=== PATIENT | female | born 1950 | race Caucasian/White ===

== ENCOUNTER → 2020-08-15 13:49 | Outpatient (BNVA) | payer MEDICARE, OTHER, SELFPAY | PROVIDERS: PCP Internal Medicine; Visit Provider Nurse Practitioner Family | DX: M96.1 Postlaminectomy syndrome, not elsewhere classified (principal); M47.816 Spondylosis without myelopathy or radiculopathy, lumbar region; M54.2 Cervicalgia; Z79.899 Other long term (current) drug therapy | CPT/HCPCS: 99202 ==

== ENCOUNTER 2021-02-08 12:33 | Day surgery (SDC) | payer MEDICARE, OTHER, SELFPAY ==
--- NOTE | 2021-02-07 15:08 | HO.ANESPROP2 ---
HPI - Anesthesia Eval Consult details Narrative: 70yo F for Lumbar Spinal Cord Stimulation Trial Chronic high dose opioids *Mult med allergies* PMFSH Active Problems Active Problems: All Active Problems (Updated 02/01/21 @ 11:38 by Kaley Méndez, RN) Failed back syndrome (Acute) Spondylosis of lumbar region without myelopathy or radiculopathy (Acute) Cervicalgia (Acute) Past Medical History Medical History (Updated 02/01/21 @ 11:38 by Kaley Méndez, RN) Chronic back pain Chronic sinusitis Fibromyalgia GERD (gastroesophageal reflux disease) Hypothyroidism Reactive airway disease Surgical History Surgical History (Updated 02/01/21 @ 11:05 by Kaley Méndez, RN) History of ankle surgery History of arthroscopy of left knee History of bilateral knee replacement History of lumbar surgery History of surgery Hx of bilateral cataract extraction Hx of bilateral hip replacements Hx of cervical spine surgery Social History Social History Patient Tobacco Use Status: Never used Tobacco Meds Allergies Allergy/AdvReac Type Severity Reaction Status Date / Time tetracycline Allergy Severe anaphylaxis Verified 02/01/21 11:04 chlorzoxazone Allergy Intermediate itchy, red Verified 02/01/21 11:04 [From Parafon Forte] face latex Allergy Intermediate itchy, red Verified 02/01/21 11:04 skin pentazocine [From Talwin] Allergy Intermediate itchy, red Verified 02/01/21 11:04 face amoxicillin [From Augmentin] AdvReac Intermediate vomiting Verified 02/01/21 11:04 clavulanic acid AdvReac Intermediate vomiting Verified 02/01/21 11:04 [From Augmentin] sulfamethoxazole AdvReac Intermediate vomiting Verified 02/01/21 11:04 [From Bactrim] trimethoprim [From Bactrim] AdvReac Intermediate vomiting Verified 02/01/21 11:04 iodine AdvReac Mild unk Verified 02/01/21 11:04 Home Medications Medication Instructions Recorded Confirmed Last Taken Type acyclovir 5 % topical ointment TOPICAL DAILY 08/15/20 08/15/20 Unknown History celecoxib 200 mg capsule 200 mg PO BID 08/15/20 02/01/21 Unknown History levothyroxine 25 mcg tablet 25 mcg PO DAILY 08/15/20 02/01/21 02/08/21 History lorazepam 1 mg tablet 1 mg PO TID PRN 08/15/20 02/01/21 Unknown History montelukast 10 mg tablet 10 mg PO DAILY 08/15/20 02/01/21 Unknown History omeprazole 40 mg capsule,delayed 40 mg PO BID 08/15/20 02/01/21 Unknown History release oxycodone 30 mg tablet 30 mg PO TID PRN 08/15/20 02/01/21 Unknown History pregabalin 150 mg capsule 150 mg PO BID 08/15/20 02/01/21 02/08/21 History zolpidem 5 mg tablet 5 mg PO BEDTIME 08/15/20 02/01/21 Unknown History albuterol sulfate 90 mcg/actuation 2 puff INHALATION Q4-6H PRN 02/01/21 02/01/21 Unknown History aerosol inhaler (ProAir HFA) ascorbic acid (vitamin C) 1,000 mg 500 mg PO BID 02/01/21 02/01/21 Unknown History tablet (Vitamin C) calcium 600 mg capsule 600 mg PO BID 02/01/21 02/01/21 Unknown History cholecalciferol (vitamin D3) 50 50 mcg PO DAILY 02/01/21 02/01/21 Unknown History mcg (2,000 unit) capsule (Vitamin D3) fluticasone furoate 100 1 puff PO DAILY 02/01/21 02/01/21 Unknown History mcg-vilanterol 25 mcg/dose inhalation powder (Breo Ellipta) fluticasone propionate 50 2 spray INTRANASAL DAILY 02/01/21 02/01/21 02/08/21 History mcg/actuation nasal spray,suspension grlpqwdnipn-dhwtoneon-jzy C-Mn 500 3 cap PO BID 02/01/21 02/01/21 Unknown History mg-400 mg capsule (Glucosamine Chondroitin Maximum Strength) melatonin 10 mg capsule 10 mg PO BEDTIME 02/01/21 02/01/21 Unknown History multivitamin,ow-ftua-Xo-FA-min 1 tab PO DAILY 02/01/21 02/01/21 Unknown History omega 7-ikf-tys-fish oil 1,000 mg 3 cap PO BID 02/01/21 02/01/21 Unknown History (120 mg-180 mg) capsule (Fish Oil) oxycodone myristate 36 mg capsule 1 cap PO TID 02/01/21 02/01/21 02/08/21 History sprinkle extended release 12hr(DON'T CRUSH) (Xtampza ER) tiotropium bromide 2.5 1 puff INHALATION BID 02/01/21 02/01/21 Unknown History mcg/actuation mist for inhalation (Spiriva Respimat) Exam Exam Date and Time: February 07, 2021 9757 Assessment and Plan Assessment Anesthesia Assessment: Chart Reviewed
--- NOTE | ~2021-02-08 | FL_ITS ---
EXAMINATION: XR FLUOROSCOPY WITH IMAGES CLINICAL INFORMATION: Spinal cord stimulation trial. COMPARISON: None. TECHNIQUE: Fluoroscopy performed by Dr. Gabriel Ambrosio. Fluoroscopy time: 3.2 minutes DAP: 15.4 mGycm2 Images: 2 FINDINGS: The 2 submitted images obtained in the frontal and lateral planes show spinal cord stimulator leads. The 2 leads terminate at the level of the T7-T8 disc. No lead fracture is seen. FL/FL guidance in OR IMPRESSION: Intraoperative fluoroscopic guidance is provided during spinal cord stimulation trial. Please see Operative Report for full procedural details.
[2021-02-08 12:43] VITALS: BMI 22.1
[2021-02-08 12:48] VITALS: BP 112/64; PULSE 88; RESP 17; TEMP 36.4; O2SAT 94
[2021-02-08] MEDS: Lactated Ringers 1,000 ML 100 ML IVCONT (13:09)
--- NOTE | 2021-02-08 14:25 | PC.NURSE ---
pt moved to [facility] report given to gurmeet ballard
--- NOTE | 2021-02-08 15:18 | MHC.SHP ---
Pre-Procedural Eval Section A Date of Service: 02/08/21 The patient is an INPATIENT: No Changes since office visit: Yes Patient answered all questions The History & Physical has been completed within 30 days and I have reviewed it.: No Section B Chief Complaint: Failed Back Syndrome Details of Present Illness: as above Relevant Family History (Specify if Yes): No Relevant Social History: None Present Medications: see Short Stay Collaborative assessment Medical History: No relevant PMH History of Previous Operations: Relevant previous surgery/procedure and date(s) Allergies: Allergies Allergy/AdvReac Type Severity Reaction Status Date / Time tetracycline Allergy Severe anaphylaxis Verified 02/01/21 11:04 chlorzoxazone Allergy Intermediate itchy, red Verified 02/01/21 11:04 [From Parafon Forte] face latex Allergy Intermediate itchy, red Verified 02/01/21 11:04 skin pentazocine [From Talwin] Allergy Intermediate itchy, red Verified 02/01/21 11:04 face amoxicillin [From Augmentin] AdvReac Intermediate vomiting Verified 02/01/21 11:04 clavulanic acid AdvReac Intermediate vomiting Verified 02/01/21 11:04 [From Augmentin] sulfamethoxazole AdvReac Intermediate vomiting Verified 02/01/21 11:04 [From Bactrim] trimethoprim [From Bactrim] AdvReac Intermediate vomiting Verified 02/01/21 11:04 iodine AdvReac Mild unk Verified 02/01/21 11:04 Review of Systems Sugical H&P ROS: Negative: Constitution, Cardiovascular, Respiratory, Neurological, Psychiatric, Hem-Onc, Allergic/Immunologic, Gastrointestinal, Genitourinary, Musculoskeletal, Integumentary, Endocrine and Eyes/Ears/Nose/Throat Exam Surgical H&P Exam: Normal: HEENT, Normal: Heart, Normal: Lungs, Normal: Extremities, Normal: Abdomen, Normal: Skin and Normal: Neurological Plan Diagnosis/Plan: Unchanged I have reviewed the history and physical and performed a pertinent physical examination on my patient. No changes have occurred unless specified.
[2021-02-08 16:40] VITALS: BP 112/65; PULSE 66; RESP 12; TEMP 36.4; O2SAT 94
--- NOTE | 2021-02-08 16:42 | P.BOP_ITS ---
Brief Operative Note Date of Service: 02/08/21 Pre-op diagnosis: post laminectomy syndrome Post-op diagnosis: same Procedure: Trial of [place] [employer] spinal cord stimulator Implants: None permanent Surgeon: Gabriel Ambrosio MD Anesthesia: MAC Was an Precision Lathe Operator used for this Procedure?: No Estimated blood loss (mL): 2 Pathology: none sent Condition: stable Disposition: PACU
[2021-02-08 16:45] VITALS: BP 136/82; PULSE 74; RESP 16; O2SAT 95
--- NOTE | 2021-02-08 16:48 | W.PM.OPN ---
Operative Note Operative Note Date of Service: 02/08/21 Narrative: Darrius is very pleasant 70 years old femalewho came today into the operating room for trial of spinal cord stimulator for the treatment of post laminectomy syndrome and chronic pain syndrome.? Preoperatively patient received 2 g of cefazolin approximately 15 minutes before procedure. After obtaining informed consent patient was brought to the operating room, SHE was positioned prone on operating table, [employer] monitors were applied and patient was deeply sedated.? The patient was taken inside of the operating room where she was positioned prone on operating table.? Time-out was performed delineating correct site, side, the nature of the procedure, patient's allergy, preoperative antibiotic if needed.? All operating room staff was participating in OR time-out procedure. Patient's entire back was prepped with ChloraPrep twice and draped with full body fenestrated drape.? Sterilely draped C-arm was brought over operating field and sqare picture of T11-T12 L1 L2 vertebrae as were demonstrated on the screen.? Attention FIRST? was concentrated on the T12-L1 epidural interspace.? The location of the projection of the right pedicle center of the L2 vertebra was found on the skin using C-arm.? This location was injected with mixture of lidocaine 2% and Marcaine 0.5% 5 cc.? After that 11 blade was used to make a harman on the skin.? 10 cm 14 gauge introducer epidural needle was inserted through the harman and advanced to T12-L1 epidural interspace.? The advancement proven to be very difficult due to spondylosis and very narrow interspace interval at the level T12-L1 on the right. Then 10 cm 14 gauge needle was removed in in stent was taken 14 gauge 6 in needle and it was inserted through the previously applied harman in the skin and advanced to T11-T12 interspace. The advancement of the needle was performed on anterior posterior and lateral views.? Guitar wire and loss of resistance technique were used to locate epidural space.? When guitar wire was spread in the epidural fashion, epidural lead was inserted through the skin and it was advanced to T8 position SLIGHTLY RIGHT OF THE MIDLINE.? After that location of the projection of the LEFT pedicle center of the L1 vertebra was found on the skin using C-arm.? This location was injected with mixture of lidocaine 2% and Marcaine 0.5% 5 cc.? After that 11 blade was used to make a harman on the skin.? 10 cm 14 gauge ?introducer epidural needle was inserted through the harman and advanced to T11-T12 epidural interspace.? The advancement of the needle was performed on anterior posterior and lateral views.? Loss of resistance technique was used to locate epidural space.? When guitar wire was spread in the epidural fashion, epidural lead was inserted through the needle and advanced to the T8 posterior epidural space slightly left to the midline. At this moment patient was awaken and the epidural leads were connected to the testing device.? The patient reported stimulation corresponding to her pain.? After satisfactory position of the leads were established the needles were withdrawn, the stylette wires were removed from the epidural leads.? The anchoring devices were dislodged on the leads and advanced to the level of the skin.? The anchoring devices were sutured with two 0-0 silk sutures to the skin of the patient.? The leads were connected to testing device.? Bacitracin ointment was applied to the entrance point of bilateral needles.? Sterile dressing was applied to the patient's back.? The testing device was also glued to the patient's back.? Upon completion of the procedure the patient was taken to PACU where SHE recovered uneventfully.??
[2021-02-08 17:00] VITALS: BP 125/83; PULSE 76; RESP 18; O2SAT 96
[2021-02-08 17:15] VITALS: BP 157/95; PULSE 74; RESP 16; TEMP 35.9; O2SAT 98
== END 2021-02-08 17:20 ==
LOC: HO.SSS 12:34
PROVIDERS: PCP Internal Medicine; Visit Provider Anesthesiology
PROC: (CPT 63650; principal; 2021-02-08 14:00)
DX: M96.1 Postlaminectomy syndrome, not elsewhere classified (principal); G89.4 Chronic pain syndrome; M47.816 Spondylosis without myelopathy or radiculopathy, lumbar region; M54.2 Cervicalgia; Z98.1 Arthrodesis status
CPT/HCPCS: 63650 ×2; C1778; J2405; J3010

== ENCOUNTER → 2021-02-14 10:50 | Outpatient (BNVA) | payer MEDICARE, OTHER, SELFPAY | PROVIDERS: PCP Internal Medicine; Visit Provider Anesthesiology | DX: M47.816 Spondylosis without myelopathy or radiculopathy, lumbar region (principal); M96.1 Postlaminectomy syndrome, not elsewhere classified; M54.2 Cervicalgia | CPT/HCPCS: 99212 ==

== ENCOUNTER 2021-04-19 07:40 | Day surgery (SDC) | payer MEDICARE, OTHER, SELFPAY ==
[2021-04-12 14:01] VITALS: BMI 23.6
--- NOTE | 2021-04-18 09:13 | P.CONAN_ITS ---
Documented by User: Lissett Yusuf NP 04/18/21 09:17 HPI - Anesthesia Eval Consult details Narrative: 70yo F for Lumbar Spinal Stimulation Implant s/p trial 01/2021 with MAC *Multiple med allergies Chronic high dose opioids PMFSH Active Problems Active Problems: All Active Problems (Updated 04/12/21 @ 14:00 by Kaley Méndez, RN) Failed back syndrome (Acute) Spondylosis of lumbar region without myelopathy or radiculopathy (Acute) Cervicalgia (Acute) Past Medical History Medical History (Updated 04/12/21 @ 14:00 by Kaley Méndez, RN) Chronic back pain Chronic sinusitis COVID-19 vaccine series completed Fibromyalgia GERD (gastroesophageal reflux disease) Hypothyroidism Medical marijuana use Reactive airway disease Spinal cord stimulator status Surgical History Surgical History (Updated 02/01/21 @ 11:05 by Kaley Méndez RN) History of ankle surgery History of arthroscopy of left knee History of bilateral knee replacement History of lumbar surgery History of surgery Hx of bilateral cataract extraction Hx of bilateral hip replacements Hx of cervical spine surgery Social History Social History Are you a primary cna caregiver to a significant other at home: No Do you presently have visiting nurse or other home services: No Patient Tobacco Use Status: Never used Tobacco Second Hand Smoke Exposure: No Use of substances other than those prescribed or required for medical reasons: No Substance Use Type Other:: Medical Marijuana - 1 at bedtime Have you been hit, kicked, punched, or otherwise hurt by someone within the past year? If so, by whom?: No Are you DNR?: No Advance Directives: No Advance Directives Information Provided: No Advance Directives on File: No Recently lost weight without trying: No Eating poorly because of decreased appetite: No Nutrition Risks: No Nutritional Risk Patient : No Meds Allergies Allergy/AdvReac Type Severity Reaction Status Date / Time tetracycline Allergy Severe anaphylaxis Verified 02/14/21 10:59 chlorzoxazone Allergy Intermediate itchy, red Verified 02/14/21 10:59 [From Parafon Forte] face latex Allergy Intermediate itchy, red Verified 02/14/21 10:59 skin pentazocine [From Talwin] Allergy Intermediate itchy, red Verified 02/14/21 10:59 face amoxicillin [From Augmentin] AdvReac Intermediate vomiting Verified 02/14/21 10:59 clavulanic acid AdvReac Intermediate vomiting Verified 02/14/21 10:59 [From Augmentin] sulfamethoxazole AdvReac Intermediate vomiting Verified 02/14/21 10:59 [From Bactrim] trimethoprim [From Bactrim] AdvReac Intermediate vomiting Verified 02/14/21 10:59 iodine AdvReac Mild unk Verified 02/14/21 10:59 Home Medications Medication Instructions Recorded Confirmed Last Taken Type acyclovir 5 % topical ointment TOPICAL DAILY 08/15/20 08/15/20 Unknown History celecoxib 200 mg capsule 200 mg PO BID 08/15/20 04/12/21 Unknown History levothyroxine 25 mcg tablet 25 mcg PO DAILY 08/15/20 04/12/21 04/19/21 History lorazepam 1 mg tablet 1 mg PO TID PRN 08/15/20 04/12/21 Unknown History montelukast 10 mg tablet 10 mg PO DAILY 08/15/20 04/12/21 Unknown History omeprazole 40 mg capsule,delayed 40 mg PO BID 08/15/20 04/12/21 04/19/21 History release oxycodone 30 mg tablet 30 mg PO TID PRN 08/15/20 04/12/21 Unknown History pregabalin 150 mg capsule 150 mg PO BID 08/15/20 04/12/21 04/19/21 History zolpidem 5 mg tablet 5 mg PO BEDTIME 08/15/20 04/12/21 Unknown History albuterol sulfate 90 mcg/actuation 2 puff INHALATION Q4-6H PRN 02/01/21 04/12/21 Unknown History aerosol inhaler (ProAir HFA) ascorbic acid (vitamin C) 1,000 mg 500 mg PO BID 02/01/21 04/12/21 Unknown History tablet (Vitamin C) calcium 600 mg capsule 600 mg PO BID 02/01/21 04/12/21 Unknown History cholecalciferol (vitamin D3) 50 50 mcg PO DAILY 02/01/21 04/12/21 Unknown History mcg (2,000 unit) capsule (Vitamin D3) fluticasone furoate 100 1 puff PO DAILY 02/01/21 04/12/21 04/19/21 History mcg-vilanterol 25 mcg/dose inhalation powder (Breo Ellipta) fluticasone propionate 50 2 spray INTRANASAL DAILY 02/01/21 04/12/2102/08/21 History mcg/actuation nasal spray,suspension douystqjzcu-czdhxeurz-boo C-Mn 500 3 cap PO BID 02/01/21 04/12/21 Unknown History mg-400 mg capsule (Glucosamine Chondroitin Maximum Strength) melatonin 10 mg capsule 10 mg PO BEDTIME 02/01/21 04/12/21 Unknown History multivitamin,eq-wtqq-Fk-FA-min 1 tab PO DAILY 02/01/21 04/12/21 Unknown History omega 8-fqy-zni-fish oil 1,000 mg 3 cap PO BID 02/01/21 04/12/21 Unknown History (120 mg-180 mg) capsule (Fish Oil) oxycodone myristate 36 mg capsule 1 cap PO TID 02/01/21 04/12/21 04/19/21 History sprinkle extended release 12hr(DON'T CRUSH) (Xtampza ER) tiotropium bromide 2.5 1 puff INHALATION BID 02/01/21 04/12/21 04/19/21 History mcg/actuation mist for inhalation (Spiriva Respimat) Exam Exam Date and Time: April 18, 2021 0913 Height,Weight and Vital Signs: Height 5 ft 5 in Weight 64.41 kg Assessment and Plan Assessment Anesthesia Assessment: Chart Reviewed Documented by User: Anibal Miguel MD 04/19/21 08:19 [facility] Past Medical History Medical History (Updated 04/12/21 @ 14:00 by Kaley Méndez, NANETTE) Chronic back pain Chronic sinusitis COVID-19 vaccine series completed Fibromyalgia GERD (gastroesophageal reflux disease) Hypothyroidism Medical marijuana use Reactive airway disease Spinal cord stimulator status Surgical History Surgical History (Updated 02/01/21 @ 11:05 by Kaley Méndez, NANETTE) History of ankle surgery History of arthroscopy of left knee History of bilateral knee replacement History of lumbar surgery History of surgery Hx of bilateral cataract extraction Hx of bilateral hip replacements Hx of cervical spine surgery Social History Social History Are you a primary cna caregiver to a significant other at home: No Do you presently have visiting nurse or other home services: No Patient Tobacco Use Status: Never used Tobacco Second Hand Smoke Exposure: No Use of substances other than those prescribed or required for medical reasons: No Substance Use Type Other:: Medical Marijuana - 1 at bedtime Have you been hit, kicked, punched, or otherwise hurt by someone within the past year? If so, by whom?: No Are you DNR?: No Advance Directives: No Advance Directives Information Provided: No Advance Directives on File: No Recently lost weight without trying: No Eating poorly because of decreased appetite: No Nutrition Risks: No Nutritional Risk Patient : No Meds Allergies Allergy/AdvReac Type Severity Reaction Status Date / Time tetracycline Allergy Severe anaphylaxis Verified 02/14/21 10:59 chlorzoxazone Allergy Intermediate itchy, red Verified 02/14/21 10:59 [From Parafon Forte] face latex Allergy Intermediate itchy, red Verified 02/14/21 10:59 skin pentazocine [From Talwin] Allergy Intermediate itchy, red Verified 02/14/21 10:59 face amoxicillin [From Augmentin] AdvReac Intermediate vomiting Verified 02/14/21 10:59 clavulanic acid AdvReac Intermediate vomiting Verified 02/14/21 10:59 [From Augmentin] sulfamethoxazole AdvReac Intermediate vomiting Verified 02/14/21 10:59 [From Bactrim] trimethoprim [From Bactrim] AdvReac Intermediate vomiting Verified 02/14/21 10:59 iodine AdvReac Mild unk Verified 02/14/21 10:59 Home Medications Medication Instructions Recorded Confirmed Last Taken Type acyclovir 5 % topical ointment TOPICAL DAILY 08/15/20 08/15/20 Unknown History celecoxib 200 mg capsule 200 mg PO BID 08/15/20 04/12/21 Unknown History levothyroxine 25 mcg tablet 25 mcg PO DAILY 08/15/20 04/12/21 04/19/21 History lorazepam 1 mg tablet 1 mg PO TID PRN 08/15/20 04/12/21 Unknown History montelukast 10 mg tablet 10 mg PO DAILY 08/15/20 04/12/21 Unknown History omeprazole 40 mg capsule,delayed 40 mg PO BID 08/15/20 04/12/21 04/19/21 History release oxycodone 30 mg tablet 30 mg PO TID PRN 08/15/20 04/12/21 Unknown History pregabalin 150 mg capsule 150 mg PO BID 08/15/20 04/12/21 04/19/21 History zolpidem 5 mg tablet 5 mg PO BEDTIME 08/15/20 04/12/21 Unknown History albuterol sulfate 90 mcg/actuation 2 puff INHALATION Q4-6H PRN 02/01/21 04/12/21 Unknown History aerosol inhaler (ProAir HFA) ascorbic acid (vitamin C) 1,000 mg 500 mg PO BID 02/01/21 04/12/21 Unknown History tablet (Vitamin C) calcium 600 mg capsule 600 mg PO BID 02/01/21 04/12/21 Unknown History cholecalciferol (vitamin D3) 50 50 mcg PO DAILY 02/01/21 04/12/21 Unknown History mcg (2,000 unit) capsule (Vitamin D3) fluticasone furoate 100 1 puff PO DAILY 02/01/21 04/12/21 04/19/21 History mcg-vilanterol 25 mcg/dose inhalation powder (Breo Ellipta) fluticasone propionate 50 2 spray INTRANASAL DAILY 02/01/21 04/12/21 02/08/21 History mcg/actuation nasal spray,suspension cehzphpfjje-pnznguqmx-tvo C-Mn 500 3 cap PO BID 02/01/21 04/12/21 Unknown History mg-400 mg capsule (Glucosamine Chondroitin Maximum Strength) melatonin 10 mg capsule 10 mg PO BEDTIME 02/01/21 04/12/21 Unknown History multivitamin,kk-jkyw-Lj-FA-min 1 tab PO DAILY 02/01/21 04/12/21 Unknown History omega 6-hvw-vja-fish oil 1,000 mg 3 cap PO BID 02/01/21 04/12/21 Unknown History (120 mg-180 mg) capsule (Fish Oil) oxycodone myristate 36 mg capsule 1 cap PO TID 02/01/21 04/12/21 04/19/21 History sprinkle extended release 12hr(DON'T CRUSH) (Xtampza ER) tiotropium bromide 2.5 1 puff INHALATION BID 02/01/21 04/12/21 04/19/21 History mcg/actuation mist for inhalation (Spiriva Respimat) Exam Airway Mallampati Class: II TM Dist: >3cm Neck ROM: Full
--- NOTE | ~2021-04-19 | FL_ITS ---
EXAMINATION: Intraoperative fluoroscopy CLINICAL INFORMATION: Lumbar spinal implant COMPARISON: Intraoperative fluoroscopy 02/08/2021 TECHNIQUE: Intraoperative fluoroscopy was provided for use by Dr. Ambrosio. A total of 2 images were saved to PACS. A radiologist was not present during imaging. Today's dictation is only for administrative purposes to document intraoperative fluoroscopic usage. TOTAL FLUOROSCOPIC TIME: 3.3 minutes FL/FL guidance in OR FINDINGS~\^^ Intraoperative fluoroscopy provided for use by Dr. Ambrosio. Please see operative note for detailed findings.
[2021-04-19 07:52] VITALS: BP 139/80; PULSE 66; RESP 18; TEMP 36.1; O2SAT 98
[2021-04-19] MEDS: Lactated Ringers 1,000 ML 100 ML IVCONT (08:16)
--- NOTE | 2021-04-19 08:22 | P.HPSUR_ITS ---
Pre-Procedural Eval Section A Date of Service: 04/19/21 The patient is an INPATIENT: No Changes since office visit: Yes Patient answered all questions The History & Physical has been completed within 30 days and I have reviewed it.: No Section B Chief Complaint: Post laminectomy syndrome Details of Present Illness: as above Relevant Family History (Specify if Yes): No Relevant Social History: None Present Medications: see Short Stay Collaborative assessment Medical History: No relevant PMH History of Previous Operations: Relevant previous surgery/procedure and date(s) Allergies: Allergies Allergy/AdvReac Type Severity Reaction Status Date / Time tetracycline Allergy Severe anaphylaxis Verified 02/14/21 10:59 chlorzoxazone Allergy Intermediate itchy, red Verified 02/14/21 10:59 [From Parafon Forte] face latex Allergy Intermediate itchy, red Verified 02/14/21 10:59 skin pentazocine [From Talwin] Allergy Intermediate itchy, red Verified 02/14/21 10:59 face amoxicillin [From Augmentin] AdvReac Intermediate vomiting Verified 02/14/21 10:59 clavulanic acid AdvReac Intermediate vomiting Verified 02/14/21 10:59 [From Augmentin] sulfamethoxazole AdvReac Intermediate vomiting Verified 02/14/21 10:59 [From Bactrim] trimethoprim [From Bactrim] AdvReac Intermediate vomiting Verified 02/14/21 10:59 iodine AdvReac Mild unk Verified 02/14/21 10:59 Review of Systems Sugical H&P ROS: Negative: Constitution, Cardiovascular, Respiratory, Neurological, Psychiatric, Hem-Onc, Allergic/Immunologic, Gastrointestinal, Gen itourinary, Musculoskeletal, Integumentary, Endocrine and Eyes/Ears/Nose/Throat Exam Surgical H&P Exam: Normal: HEENT, Normal: Heart, Normal: Lungs, Normal: Extremities, Normal: Abdomen, Normal: Skin and Normal: Neurological Plan Diagnosis/Plan: Unchanged I have reviewed the history and physical and performed a pertinent physical examination on my patient. No changes have occurred unless specified.
[2021-04-19 11:20] VITALS: BP 145/84; PULSE 87; RESP 12; TEMP 36.6; O2SAT 96
--- NOTE | 2021-04-19 11:26 | PM.OP ---
Brief Operative Note Date of Service: 04/19/21 Pre-op diagnosis: Postlaminectomy syndrome Post-op diagnosis: same Procedure: Implantation of spinal cord stimulator Implants: [place] [employer] alpha battery and 2 epidural leads. Surgeon: Gabriel Ambrosio MD Anesthesia: MAC Was an Employee Relations Representative used for this Procedure?: No Estimated blood loss (mL): 18 Pathology: none sent Condition: stable Disposition: PACU
[2021-04-19 11:35] VITALS: BP 146/87; PULSE 84; RESP 18; O2SAT 97
[2021-04-19 11:49] VITALS: BP 142/74; PULSE 79; RESP 18; TEMP 36.7; O2SAT 96
[2021-04-19 12:05] VITALS: BP 139/78; PULSE 83; RESP 18; O2SAT 97
--- NOTE | 2021-04-19 13:35 | W.PM.OPN ---
Operative Note Operative Note Date of Service: 04/19/21 Narrative: Mark is 70 years old female who came today into the operating room for implantation of spinal cord stimulator for the treatment of pain related to? postlaminectomy syndrome.? She had successful trial of spinal cord stimulation [employer]. ? Preoperatively patient received antibiotic cefasolin? 2g approximately 30 minutes before the procedure. After obtaining informed consent patient was brought to the operating room, she was positioned prone on the OR table, [employer] monitors were applied and patient was sedated. ?? Time-out was performed delineating correct site, side, the nature of the procedure, patient's allergy, preoperative antibiotic.? All operating room staff was participating in OR time-out procedure. Patient's entire back was prepped with DuraPrep twice and draped with full body drape including Ioban film.? Sterilely draped C-arm was brought over operating field and square picture of T12, L1, L2?vertebrae? were demonstrated on the screen.? THE PROJECTION OF?L1- L2??SPINOUS PROCESSES TO THE SKIN WERE INFILTRATED WITH LIDOCAINE 2% MIXED WITH BUPIVACAINE 0.5%.? 7 CM LONG VERTICAL INCISION using a 10 blade scalpel WAS PERFORMED IN STRICT MIDLINE VERTICAL FASHION.? THOROUGH HEMOSTASIS WAS PERFORMED using electrocautery. ?Thorough tissue dissections was performed until prevertebral fascia was freed from overlying tissues.? Attention FIRST? was concentrated on the RIGHT T12-L1 epidural interspace.? The location of the projection of the right pedicle center of the?L2?vertebra was found on the prevertebral fascia using C-arm.? This location was injected with mixture of lidocaine 2% and Marcaine 0.5% 5 cc in approximate direction of needle advancement.? After that ? 10 cm 14 gauge straight introducer epidural needle was inserted through the fascia and advanced toward?T12-L1 epidural interspace.? The advancement of the needle was performed on anterior posterior and lateral views.? Guitar wire and loss of resistance technique were used to locate epidural space.? Inadvertently guitar wire went intrathecally at this level. It was withdrawn on mass with the needle. The decision was made to access epidural space 1 level higher at T12-T11 epidural space. 6-1/2 inch 14 gauge straight epidural needle was used from the same needle stick point and it was advanced toward T12-T11 vertebral interspace on anterior posterior and lateral views.. When loss of resistance was felt in the needle, guitar wire was obtained inserted into the needle. guitar wire was spread in the epidural fashion, epidural lead was inserted through the skin and it was advanced to the position in the POSTERIOR EPIDURAL SPACE slightly?RIGHT?TO THE MIDLINE at the posterior T8 vertebral body body epidural space. After that location of the projection of the LEFT pedicle center of the L2 vertebra was found -using C-arm.? This location was injected with mixture of lidocaine 2% and Marcaine 0.5% 5 cc.. .? Again here 6-1/2 inch 14 gauge straight epidural needle was inserted through the prevertebral fashion advanced to T11-T12 intervertebral interspace. Loss of resistance to air technique was used to locate epidural space and guitar wire was used to confirm position of the epidural space. .When guitar wire was spread in the epidural fashion, epidural lead was inserted through the needle and advanced to the T8 POSTERIOR EPIDURAL SPACE SLIGHTLY?LEFT to the existing LEAD.? THE LOCATION OF BOTH LEADS WAS VERIFIED ON ANTERIOR POSTERIOR AND LATERAL VIEWS. THE PATIENT WAS AWAKEN? and the test of the stimulation was performed. The patient reported stimulation corresponding to his pain. She was resedated after that. After satisfactory position of the leads were established the needles were withdrawn, the stylette wires were removed from the epidural leads.? The anchoring devices were dislodged on the leads and advanced to the level of the skin.? The anchoring devices were advanced along the epidural leads and dislodged and epidural leads at the level of prevertebral fascia.? They were sutured to prevertebral fascia with 2 separate Tycron sutures per each anchoring device.? The fixating screws was fixed until 3 clicks were heard on each anchoring device. After that the wound was irrigated with copious amount of Vancomycin containing normal saline and packed with Vancomycin soaked 4 x 4. ?After that attention was concentrated on the left upper buttock??of the patient?where she wanted the? battery to be implanted.? 6 cm long horizontal incision was performed 3 cm below the projection to the skin of the top left illiac crest. the wound was deepened and widened and thorough hemostasis was performed. The pocket was created to accomodate the battery. Irrigation with vancomycin containing saline was performed.After that the? tunneling device was used to connect midline incision and the left upper buttock incision. Thorough hemostasis was performed. ? The impedance was satisfactory.? After that tunneling device was used to connect both wounds.? Cervical leads from the thoracic wound were dislodged into the loin wound.? They were connected to the battery. After that both wounds were thoroughly irrigated with normal saline containing vancomycin.? Sutures were applied to the most superior lateral and most superior medial corners of the? wound.? Those sutures were tied after the battery was inserted into the pocket with the epidural leads collected behind the body of the battery.. After that 0 Vicryl sutures were used to close both wounds.?2-0 Vicryl was used to approximate the level of the skin.? Friant were applied to skin level.? Bacitracin ointment was smeared on the staple line.? Sterile dressing was applied.? Abdominal binder was applied.? The patient was transferred to the stretcher, awaken, and in stable condition transferred to PACU.? She recovered uneventfully.? ?
== END 2021-04-19 12:39 | disposition home or self-care (01) ==
PROVIDERS: PCP Internal Medicine; Visit Provider Anesthesiology
PROC: (CPT 63685; principal; 2021-04-19 09:00)
DX: M47.816 Spondylosis without myelopathy or radiculopathy, lumbar region (principal); M96.1 Postlaminectomy syndrome, not elsewhere classified; G89.29 Other chronic pain; M54.50 Low back pain, unspecified; M54.2 Cervicalgia; J45.909 Unspecified asthma, uncomplicated; K21.9 Gastro-esophageal reflux disease without esophagitis; E03.9 Hypothyroidism, unspecified; M79.7 Fibromyalgia; J32.9 Chronic sinusitis, unspecified; Z98.1 Arthrodesis status; Z79.899 Other long term (current) drug therapy; Z96.643 Presence of artificial hip joint, bilateral; Z79.891 Long term (current) use of opiate analgesic; Z96.653 Presence of artificial knee joint, bilateral
CPT/HCPCS: 63685; 63650; C1713; C1778; C1787; C1820; J1100; J2250; J3370

== ENCOUNTER → 2021-04-25 09:40 | Outpatient (BNVA) | payer MEDICARE, OTHER, SELFPAY | PROVIDERS: PCP Internal Medicine; Visit Provider Anesthesiology | DX: M96.1 Postlaminectomy syndrome, not elsewhere classified (principal); M47.816 Spondylosis without myelopathy or radiculopathy, lumbar region; M54.2 Cervicalgia | CPT/HCPCS: 99212 ==

== ENCOUNTER → 2021-05-02 09:28 | Outpatient (BNVA) | payer MEDICARE, OTHER, SELFPAY | PROVIDERS: PCP Internal Medicine; Visit Provider Anesthesiology | DX: M47.816 Spondylosis without myelopathy or radiculopathy, lumbar region (principal); M54.2 Cervicalgia; M96.1 Postlaminectomy syndrome, not elsewhere classified | CPT/HCPCS: 99212 ==

== ENCOUNTER → 2021-12-11 15:18 | Outpatient (BNVA) | payer MEDICARE, OTHER, SELFPAY | PROVIDERS: PCP Internal Medicine; Visit Provider Anesthesiology | DX: M96.1 Postlaminectomy syndrome, not elsewhere classified (principal); M47.816 Spondylosis without myelopathy or radiculopathy, lumbar region; M54.2 Cervicalgia | CPT/HCPCS: 99212 ==

== ENCOUNTER 2022-01-21 06:06 | Outpatient (REF) | payer MEDICARE, OTHER, SELFPAY ==
--- NOTE | ~2022-01-21 | FL_ITS ---
EXAMINATION: XR FLUOROSCOPY WITH IMAGES CLINICAL INFORMATION: M47.816 - Spondylosis without myelopathy or radiculopathy, lumbar region COMPARISON: None. TECHNIQUE: Fluoroscopy performed by Dr. Gabriel Ambrosio. Fluoroscopy time: 0.5 minutes. Cumulative Dose: 6.47 mGy. DAP: 1.76 Gy-cm2. Images: 4. FINDINGS: There are spinal needles overlying the outer left L2, L3, L4, and L5 neural foramen. There is contrast seen in the respective nerve sheaths. Some early transforaminal epidural extension is suggested. No visible vascular communication. There are degenerative changes with multilevel lumbar disc narrowing and vertebral spurring. There is generator and spinal stimulator leads again seen overlying the lumbar spine and extending beyond field of view. FL/FL guidance in treatment room IMPRESSION: Fluoroscopy for pain management procedures.
== END 2022-01-21 06:07 | disposition home or self-care (01) ==
LOC: HO.RADIR 06:06
PROVIDERS: Visit Provider Anesthesiology
DX: M47.816 Spondylosis without myelopathy or radiculopathy, lumbar region (principal)
CPT/HCPCS: 64493; 64494; 64495

== ENCOUNTER 2022-01-28 06:25 | Outpatient (REF) | payer MEDICARE, OTHER, SELFPAY ==
--- NOTE | ~2022-01-28 | FL_ITS ---
EXAMINATION: XR FLUOROSCOPY WITH IMAGES CLINICAL INFORMATION: M47.816 - Spondylosis without myelopathy or radiculopathy, lumbar region COMPARISON: Fluoroscopic spot views 01/21/2022, 04/19/2021. TECHNIQUE: Fluoroscopy performed by Dr. Garbiel Ambrosio. Fluoroscopy time: 0.2 minutes. Cumulative Dose: 7.56 mGy. DAP: 2.06 Gy-cm2. Images: 5. FINDINGS: There are spinal needles overlying the outer left L2, L3, L4, and L5 neural foramen. Again, there are degenerative changes with multilevel lumbar disc narrowing and vertebral spurring. Spinal stimulator leads again seen overlying the lumbar spine and extending beyond field of view. FL/FL guidance in treatment room IMPRESSION: Fluoroscopy for pain management procedures.
== END 2022-01-28 06:26 | disposition home or self-care (01) ==
LOC: HO.RADIR 06:25
PROVIDERS: Visit Provider Anesthesiology
DX: M47.816 Spondylosis without myelopathy or radiculopathy, lumbar region (principal)
CPT/HCPCS: 64493; 64494; 64495; J2795

== ENCOUNTER → 2022-02-03 15:15 | Outpatient (BNVA) | payer MEDICARE, OTHER, SELFPAY | PROVIDERS: PCP Internal Medicine; Visit Provider Anesthesiology | DX: M96.1 Postlaminectomy syndrome, not elsewhere classified (principal); M47.816 Spondylosis without myelopathy or radiculopathy, lumbar region; M54.2 Cervicalgia; M79.7 Fibromyalgia; Z96.82 Presence of neurostimulator | CPT/HCPCS: Q3014 ==

== ENCOUNTER → 2022-02-25 13:10 | Day surgery (SDC) | payer MEDICARE, OTHER, SELFPAY ==
[2022-02-25 13:24] VITALS: BMI 23.3
[2022-02-25 13:27] VITALS: BP 165/83; PULSE 76; RESP 18; TEMP 36.2; O2SAT 96; BMI 23.3
--- NOTE | 2022-02-25 14:19 | MHC.SHP ---
Pre-Procedural Eval Section A Date of Service: 02/25/22 The patient is an INPATIENT: No Changes since office visit: Yes Patient answered all questions The History & Physical has been completed within 30 days and I have reviewed it.: No Section B Chief Complaint: Spondylosis without myelopathy or radiculopathy, l Details of Present Illness: as above Relevant Family History (Specify if Yes): No Relevant Social History: None Present Medications: see Short Stay Collaborative assessment Medical History: No relevant PMH History of Previous Operations: No relevant previous surgery Allergies: Allergies Allergy/AdvReac Type Severity Reaction Status Date / Time tetracycline Allergy Severe anaphylaxis Verified 02/03/22 15:17 chlorzoxazone Allergy Intermediate itchy, red Verified 02/03/22 15:17 [From Parafon Forte] face latex Allergy Intermediate itchy, red Verified 02/03/22 15:17 skin pentazocine [From Talwin] Allergy Intermediate itchy, red Verified 02/03/22 15:17 face amoxicillin [From Augmentin] AdvReac Intermediate vomiting Verified 02/03/22 15:17 clavulanic acid AdvReac Intermediate vomiting Verified 02/03/22 15:17 [From Augmentin] sulfamethoxazole AdvReac Intermediate vomiting Verified 02/03/22 15:17 [From Bactrim] trimethoprim [From Bactrim] AdvReac Intermediate vomiting Verified 02/03/22 15:17 iodine AdvReac Mild unk Verified 02/03/22 15:17 Review of Systems Sugical H&P ROS: Negative: Constitution, Cardiovascular, Respiratory, Neurological, Psychiatric, Hem-Onc, Allergic/Immunologic, Gastrointestinal, Genitourinary, Integumentary, Endocrine and Eyes/Ears/Nose/Throat and Yes, Specify: Musculoskeletal (as above) Exam Surgical H&P Exam: Normal: HEENT, Normal: Heart, Normal: Lungs, Normal: Extremities, Normal: Abdomen, Normal: Skin and Normal: Neurological Plan Diagnosis/Plan: Unchanged I have reviewed the history and physical and performed a pertinent physical examination on my patient. No changes have occurred unless specified.
== END ==
PROVIDERS: PCP Internal Medicine; Visit Provider Anesthesiology
DX: M47.816 Spondylosis without myelopathy or radiculopathy, lumbar region (principal); Z53.8 Procedure and treatment not carried out for other reasons
CPT/HCPCS: J3300

== ENCOUNTER 2022-03-18 13:31 | Day surgery (SDC) | payer MEDICARE, OTHER, SELFPAY ==
--- NOTE | ~2022-03-18 | FL_ITS ---
EXAMINATION: XR FLUOROSCOPY WITH IMAGES CLINICAL INFORMATION: Bilateral lumbar RFA. M47.816 - Spondylosis without myelopathy or radiculopathy, lumbar region COMPARISON: Fluoroscopic spot views 01/28/2022 TECHNIQUE: Fluoroscopy performed by Dr. Gabriel Ambrosio. Fluoroscopy time: 1.0. Cumulative Dose: 11.6 mGy. DAP: 3.17 Gycm2. Images: 4. FINDINGS: There are electrodes/spinal needles overlying the bilateral outer L3, L4, and L5 neural foramen. There are multilevel degenerative changes with disc narrowing and vertebral spurring. Spinal stimulator leads are again seen ascending the lumbar spine beyond the superior [id number]. FL/FL guidance in OR IMPRESSION: Fluoroscopy for pain management procedures.
[2022-03-18 11:40] VITALS: BMI 24.6
[2022-03-18 13:35] VITALS: BP 151/89; PULSE 83; RESP 18; TEMP 36.6; O2SAT 95
--- NOTE | 2022-03-18 13:40 | MHC.SHP ---
Pre-Procedural Eval Section A Date of Service: 03/18/22 The patient is an INPATIENT: No Changes since office visit: Yes Patient answered all questions The History & Physical has been completed within 30 days and I have reviewed it.: No Section B Chief Complaint: spondylosis Details of Present Illness: as above Relevant Family History (Specify if Yes): No Relevant Social History: None Present Medications: see Short Stay Collaborative assessment Medical History: No relevant PMH History of Previous Operations: No relevant previous surgery Allergies: Allergies Allergy/AdvReac Type Severity Reaction Status Date / Time tetracycline Allergy Severe anaphylaxis Verified 02/03/22 15:17 chlorzoxazone Allergy Intermediate itchy, red Verified 02/03/22 15:17 [From Parafon Forte] face latex Allergy Intermediate itchy, red Verified 02/03/22 15:17 skin pentazocine [From Talwin] Allergy Intermediate itchy, red Verified 02/03/22 15:17 face amoxicillin [From Augmentin] AdvReac Intermediate vomiting Verified 02/03/22 15:17 clavulanic acid AdvReac Intermediate vomiting Verified 02/03/22 15:17 [From Augmentin] sulfamethoxazole AdvReac Intermediate vomiting Verified 02/03/22 15:17 [From Bactrim] trimethoprim [From Bactrim] AdvReac Intermediate vomiting Verified 02/03/22 15:17 iodine AdvReac Mild unk Verified 02/03/22 15:17 Review of Systems Sugical H&P ROS: Negative: Constitution, Cardiovascular, Respiratory, Neurological, Psychiatric, Hem-Onc, Allergic/Immunologic, Gastrointestinal, Genitourinary, Musculoskeletal, Integumentary, Endocrine and Eyes/Ears/Nose/Throat Exam Surgical H&P Exam: Normal: HEENT, Normal: Heart, Normal: Lungs, Normal: Extremities, Normal: Abdomen, Normal: Skin and Normal: Neurological Plan Diagnosis/Plan: Unchanged I have reviewed the history and physical and performed a pertinent physical examination on my patient. No changes have occurred unless specified.
--- NOTE | 2022-03-18 13:46 | W.PM.OPN ---
Operative Note Operative Note Date of Service: 03/18/22 Narrative: RFA L2- L3- L4-DRL5 Informed consent was explained to the patient. All questions were explained and answered. The patient was taken inside of the operating room where she was positioned prone on the operating table. She turned off her spinal cord stimulator. Time-out was performed delineating patient's name and date of , correct site, side, the nature of the procedure, patient's allergy, preoperative antibiotic if needed. All operating room staff was participating in OR time-out procedure. The patient lower back was prepped with ChloraPrep and draped with sterile towels. Sterilely draped C-arm was brought over the operating field and sq picture of L4-5 vertebra as and S1 area were delineated on the screen. Points of interest were delineated as connection of superior articular process of L4 and L5 vertebra bilaterally with corresponding transverse processes as well as connection of the sacral alae bilaterally with superior articular process of S1. The projection of the point of interest to the skin were injected with the small amount of local anesthetic lidocaine 2% 1-1.5 cc. After that 18 gauge 100 mm radiofrequency cannulas were driven to the points of interest in tunnel vision fashion under intermittent AP and oblique views. After needles gently contacted the bone at the point of interests the stylets were removed from the needles and nitinol electrodes were inserted into the needles. Electrodes were connected to the radiofrequency machine and testing was performed for the patient's sensory and motor function. There were no pathological motor response indicating stimulation of somatic nerves. After that electrodes were removed and each needle was injected with small amount of mixture of lidocaine 2% and ropivacaine 0.5% 1-1.5 cc mixed with trace amount of Kenalog. Upon completion of the injections the electrodes were reinserted and energy of 80 degree centigrade for 90 seconds was applied to each cannula first on the right and after that on the left. Upon completion of the energy application the cannulas were rotated 180? and energy applied with the same temperature and with the same time. Upon completion of the RFA needles were removed and sterile dressings were applied, patient was taken outside of the operating room to recovery room where she recovered uneventfully. She went home without immediate complications.
--- NOTE | 2022-03-18 13:50 | PM.OP ---
Brief Operative Note Date of Service: 03/18/22 Pre-op diagnosis: spondylosis lumbar spine Post-op diagnosis: same Procedure: Radiofrequency ablation of the bilateral L3- L4- DRL5 medial branches. Surgeon: Gabriel Ambrosio MD Anesthesia: local Was an Special Library Librarian used for this Procedure?: No Estimated blood loss (mL): 1 Pathology: none sent Condition: stable Disposition: PACU
[2022-03-18 15:06] VITALS: BP 137/76; PULSE 72; RESP 18; TEMP 37.1; O2SAT 95
== END 2022-03-18 17:00 | disposition home or self-care (01) ==
PROVIDERS: PCP Internal Medicine; Visit Provider Anesthesiology
PROC: (CPT 64635; principal; 2022-03-18 14:10)
DX: M47.816 Spondylosis without myelopathy or radiculopathy, lumbar region (principal); M47.27 Other spondylosis with radiculopathy, lumbosacral region; M54.2 Cervicalgia; M96.1 Postlaminectomy syndrome, not elsewhere classified; G89.29 Other chronic pain; M43.22 Fusion of spine, cervical region; M79.7 Fibromyalgia; E03.9 Hypothyroidism, unspecified; J32.9 Chronic sinusitis, unspecified; F12.90 Cannabis use, unspecified, uncomplicated; Z79.51 Long term (current) use of inhaled steroids; Z79.899 Other long term (current) drug therapy; Z88.1 Allergy status to other antibiotic agents; Z88.2 Allergy status to sulfonamides; Z91.040 Latex allergy status; Z96.653 Presence of artificial knee joint, bilateral
CPT/HCPCS: 64635; 64636; J3300

== ENCOUNTER → 2022-04-21 14:00 | Outpatient (BNVA) | payer MEDICARE, OTHER, SELFPAY | PROVIDERS: PCP Internal Medicine; Visit Provider Anesthesiology | DX: M96.1 Postlaminectomy syndrome, not elsewhere classified (principal); M47.816 Spondylosis without myelopathy or radiculopathy, lumbar region; M54.2 Cervicalgia | CPT/HCPCS: 99212 ==

== ENCOUNTER → 2022-08-18 12:56 | Outpatient (BNVA) | payer MEDICARE, OTHER, SELFPAY | PROVIDERS: PCP Internal Medicine; Visit Provider Anesthesiology | DX: M96.1 Postlaminectomy syndrome, not elsewhere classified (principal); M47.816 Spondylosis without myelopathy or radiculopathy, lumbar region; M54.2 Cervicalgia | CPT/HCPCS: 99212 ==

== ENCOUNTER → 2022-09-08 13:32 | Outpatient (BNVA) | payer MEDICARE, OTHER, SELFPAY | PROVIDERS: PCP Internal Medicine; Visit Provider Anesthesiology ==

== ENCOUNTER 2023-10-07 13:43 | Outpatient (AMB) | payer MEDICARE, OTHER, SELFPAY ==
--- NOTE | 2023-10-07 13:47 | HO.SPINEOV ---
Intake Visit Reasons: ankle and butt pain Intake Note: Ms. Renee is here today c/o right sided lower back pain that radiates down to the ankle. [employer] Operator Required: No Allergies tetracycline Allergy (Severe, Verified 10/07/23 13:57) anaphylaxis chlorzoxazone [From Parafon Forte] Allergy (Intermediate, Verified 10/07/23 13:57) itchy, red face latex Allergy (Intermediate, Verified 10/07/23 13:57) itchy, red skin pentazocine [From Talwin] Allergy (Intermediate, Verified 10/07/23 13:57) itchy, red face amoxicillin [From Augmentin] Adverse Reaction (Intermediate, Verified 10/07/23 13:57) vomiting clavulanic acid [From Augmentin] Adverse Reaction (Intermediate, Verified 10/07/23 13:57) vomiting sulfamethoxazole [From Bactrim] Adverse Reaction (Intermediate, Verified 10/07/23 13:57) vomiting trimethoprim [From Bactrim] Adverse Reaction (Intermediate, Verified 10/07/23 13:57) vomiting iodine Adverse Reaction (Mild, Verified 10/07/23 13:57) unk Assessment & Plan Assessment & Plan (1) Right leg pain: Code(s): M79.604 - Pain in right leg Category: Medical Plan Dear colleague, Thank you for referring Alena to our office today. She has a pleasant 72-year-old female who comes in today with a chief complaint of right-sided leg pain. She states that she has pain in her right buttocks and right turner. She states that this pain began abruptly on 07/30/2023 without any inciting incident. She reports a pertinent medical history of a C5-[address] Johnson, and 4 other lumbar spine surgeries completed by Dr. Meza and someone else at [facility] (she is unsure which ones were done by who). She is currently being followed by Dr. Mcclain and recently had a L3-4 cortisone injection per her report. She states that this gave her two months of 100% relief. She states that positional changes do not help relieve her symptoms, but knows that standing makes her symptoms worse. She currently is taking 90 mg of oxycodone daily (30 mg t.i.d.), 150 mg of Lyrica b.i.d., and 200 mg of Celebrex b.i.d. to help alleviate her pain. She also takes Ativan 1 mg t.i.d. to help with spasms. She states she takes these medications because she is in ?chronic pain? and states she will likely need them regardless of surgery. PMH: C5-[address] Johnson, 4 other lumbar spine surgeries completed by Dr. Meza and 1 other surgeon at [facility]. Chronic pain with chronic narcotic pain control, fibromyalgia, hypothyroidism, bronchiectasis, insomnia, reactive airway disease. Social hx: Patient does not smoke, reports no substance use. Medications: Albuterol, calcium, vitamin-C, celecoxib, cholecalciferol, clonidine, fluticasone, glucosamine, hydroxyzine, levothyroxine, lorazepam, melatonin, montelukast, multivitamin, fish oil, omeprazole, oxycodone, Lyrica, tiotropium, Ambien. Allergies: Tetracycline, Chlorzoxazone, latex, Pentazocine, amoxicillin, Bactrim, iodine. Physical exam: The patient has 4/5 strength in her bilateral lower extremities. It is difficult to assess if she has lesser strength in the right lower extremity, as her exam is pain limited. Her upper extremity strength is 5/5. She has no significant sensational deficits. She ambulates with an antalgic gait favoring her left side and utilizes a cane for ambulation. Her reflexes are 1+ hypoactive in her bilateral lower extremities. Reflexes elsewhere 2+ intact. (-) Seals's, (-) clonus. Imaging review: MRI of the lumbar spine completed at [facility] shows diffuse spondylosis of the lumbar spine. She has an old healed compression fracture at L1. She has mild bilateral foraminal stenosis at L1-2, L2-3 and L4-5. She has moderate right-sided foraminal stenosis at L3-4 and mild left-sided foraminal stenosis at this level. Impression: Alena is a pleasant 72-year-old female who comes in today with a chief complaint of pain in her anterior right turner and posterior right buttocks. She states this pain has been ongoing since July 30 of this year. She is unable to identify an inciting incident. She has had several spinal procedures in the past, and is a chronic pain patient on chronic narcotic pain control. On exam the patient has very accentuated responses to strength testing and it seems that her pain is out of proportion to her imaging. She does have something noticeable on the right side at L3-4 on her MRI which would vaguely match this dermatomal distribution, however she has no radiation of pain from her low back, and feels as though her pain is very well isolated to the anterior turner and posterior buttocks on the right. I will be sending her for a set of flexion-extension x-rays and will call her early next week after I have time to review this case with Dr. Rodgers. I will let her know if he has any surgical interventions he is willing to offer her at this time. Thank you for allowing us to care for your patient. The total time spent with this visit with this patient was 65 minutes reviewing history, physical exam, MRI imaging review, and implementation of treatment plan or further diagnostic testing Mann Rodgers MD,PhD [facility] Orders: Orders XR lumbar spine 4V min Today M54.16 - Radiculopathy, lumbar region Coding Level of Care Code New Pt Level 5 (08358) Diagnoses Right leg pain M79.604
== END 2023-10-07 14:52 | disposition home or self-care (01) ==
PROVIDERS: PCP Internal Medicine; Visit Provider Physician Assistant
DX: M79.604 Pain in right leg (principal)
CPT/HCPCS: 99205

== ENCOUNTER → 2023-10-07 13:43 | Outpatient (BNVA) | payer MEDICARE, OTHER, SELFPAY | PROVIDERS: PCP Internal Medicine; Visit Provider Physician Assistant ==

== ENCOUNTER 2023-10-07 14:29 | Outpatient (REF) | payer MEDICARE, OTHER, SELFPAY | END 2023-10-07 14:30 | disposition home or self-care (01) | LOC: HO.HOSX 14:29 | PROVIDERS: Visit Provider Physician Assistant | DX: M54.16 Radiculopathy, lumbar region (principal) | CPT/HCPCS: 72110; 99202 ==